=== PATIENT | female | born 1990 | race Caucasian/White ===

== ENCOUNTER 2018-05-01 12:12 | Emergency (ER) | payer MEDICAID ==
[2018-05-01] MEDS ORDERED: Lactated Ringer 1,000 ML IV ONE (12:50)
[2018-05-01 13:41] LABS: % BASOPHILS 0.4 % (0.0-2.0); % LYMPHOCYTES 17.3 % (20.0-50.0); % MONOCYTES 1.7 % (2.0-10.0); % NEUTROPHILS 77.6 % (40.0-80.0); EOSINOPHILE ABSOLUTE 0.4 Th/cmm (0.1-0.4); HEMATOCRIT 35.4 % (41.0-60); HEMOGLOBIN 11.9 gm/dL (12-16); LYMPHOCYTE ABSOLUTE 2.1 Th/cmm (1.5-3.0); MEAN CELL VOLUME 86.6 fl (81-100); MEAN CORPUSCULAR HEMOGLOBIN 29.1 pg (27.0-31.0); MEAN CORPUSCULAR HGB CONC 33.6 pg (28.0-36.0); MEAN PLATELET VOLUME 8.2 fl; MONOCYTE ABSOLUTE 0.2 Th/cmm (0.3-1.0); NEUTROPHILE ABSOLUTE 9.3 Th/cmm (1.8-8.0); PLATELET COUNT 348 Th/cmm (150-400); RED BLOOD COUNT 4.09 Mil/cmm (3.80-5.10); RED CELL DISTRIBUTION WIDTH 13.4 % (11.5-20.0)
[2018-05-01 16:09] LABS: INR 0.88 (0.5-1.4); PROTHROMBIN TIME (TEST) 9.3 SECONDS (9.5-11.5)
--- NOTE | 2018-05-02 08:46 | Diagnostic Imaging Report ---
Ultrasound pelvis HISTORY: Vaginal bleeding. History of miscarriage 3 months ago. Beta hCG is negative. Current menses COMPARISON: None Technique: Longitudinal and transverse sonographic sector images of the pelvis were obtained transabdominally and transvaginally. FINDINGS: The uterus measures 9.6 x 6.3 x 6.7 cm no evidence of a heterogeneous echotexture. The endometrial echo complex measures 1.3 cm. There is an indeterminate hyperechoic area seen along the cervix region measuring 3.5 x 3.4 cm. The right ovary measures 2.7 x 1.8 cm.. The left ovary measures 3.5 x 2.4 cm. Bilat. follicular cystic changes are noted left greater than right. No evidence of free fluid in the pelvis. IMPRESSION: Hyperechoic area/possible mass lesion along the lower uterine/cervix region. Findings may represent a uterine lesion possibly an atypical fibroid, however, a cervix lesion cannot be excluded. Other etiologies may include clot formation. Clinical correlation and follow-up including gynecologic consultation is suggested. Thickened endometrial echo complex measuring 1.3 cm. The significance of this finding should be correlated clinically. Bilateral ovarian follicular cystic changes. No evidence of free fluid.
--- NOTE | 2018-05-05 20:42 | Pathology Report ---
[id number] Collection Date: 05/01/2018 Surgeon: Dr. Jessica Ortiz Specimen Description: Vaginally passed tissue. Gross Description: Received from the ER without fixative is a 2.3 x 1.8 x 1.5 cm portion of reddish-brown blood clot with some areas showing leal soft tissue attached to the outer surface. Sectioning shows mostly dark red blood clot with only focal areas of grayish tissue along the outer edges of the specimen. Totally submitted in five cassettes labeled A1-A5. Microscopic Description: The histologic sections show hemorrhagic material consisting of mostly blood clot and fibrin. Areas of degenerated decidualized tiisue and chorionic villi are identified, admixed with inflammatory cells that consist of mostly neutrophils. Diagnosis: Chorionic villi identified consistent with products of conception ( POC). Comment: The histologic findings are consistent with the patient's recent history of miscarriage, and suggests that there may still be retained placenta/ POC. These findings are discussed with Dr. Jessica Ortiz, who has advised the patient to follow up with an ETHNOGRAPHER specialist. This follow-up should include further monitoring of the serum hCG levels to determine if further treatment is warranted. JOB# [id number] MTDD
== END 2018-05-01 16:36 | disposition left against medical advice (07) ==
LOC: ER 12:12
DX: N93.9 Abnormal uterine and vaginal bleeding, unspecified (principal)
CPT/HCPCS: 36415-UA; 76856-TC; 81025-TC; 84702-TC; 85025-TC; 85610-TC; Z7502